=== PATIENT | female | born 1985 | race Caucasian/White ===

== ENCOUNTER 2016-08-07 09:43 | Emergency (ER) | payer BC ==
[2016-08-07 09:54] VITALS: BP 124/81
--- NOTE | 2016-08-07 10:37 | EDM.PDOC ---
ED HPI GENERAL MEDICAL PROBLEM - General Chief Complaint: Cardiovascular Problem Stated Complaint: SENT BY CLINIC RAPID HEART RATE/FACIAL SWELLING Time Seen by Provider: 08/07/16 10:30 Source of Information: Reports: Patient, Family (mother) History Limitations: Reports: No Limitations - History of Present Illness INITIAL COMMENTS - FREE TEXT/NARRATIVE: 30-year-old female since the ED due to feeling of palpitations lightheadedness and dizziness with standing. Generalized weakness. She reports that she's been having 4-5 loose large-volume watery stools for the last 6 days. No associated fever. Intermittent abdominal cramping pain with no blood noted in the diarrheal stool. Irritable bowel syndrome or Crohn's disease or colitis. She's had more or less loose stools since having her gallbladder removed several years ago. She states she is on a liquid diet only. Eats solids. She eats at home. There is little chance of foodborne illness. One of her children were sick with vomiting for one half day but no diarrhea developed. She has no associated nausea or vomiting.. She has lost about 5 pounds of weight in the last 6 days. Onset: Sudden Onset Date: 08/01/16 Duration: Day(s):, Chronic, Constant Location: Reports: Abdomen (Persistent loose watery large volume of stool loss over the last 6 days.) Quality: Reports: Other Severity: Moderate (Intermittent abdominal cramping.) Improves with: Reports: None Worsens with: Reports: Other (Drinking any fluid seems to sign off.) Context: Denies: Activity, Exercise, Lifting, Sick Contact, Trauma, Other Associated Symptoms: Reports: Loss of Appetite, Malaise, Weakness, Other ( Lightheaded and dizzy.). 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.) - Related Data Allergies Allergy/AdvReac Type Severity Reaction Status Date / Time No Known Allergies Allergy Verified 08/07/16 09:50 Home Meds: Home Meds Dicyclomine [Bentyl] 20 mg PO Q6H PRN #12 tablet 08/07/16 [Rx] Past Medical History - Past Health History Medical/Surgical History: Denies Medical/Surgical History HEENT History: Reports: None Cardiovascular History: Reports: None Respiratory History: Reports: None Genitourinary History: Reports: None Other OB/BYN History: Grav 6 para3 Musculoskeletal History: Reports: None Neurological History: Reports: None Psychiatric History: Reports: Anxiety Endocrine/Metabolic History: Reports: None Hematologic History: Reports: None Immunologic History: Reports: None Oncologic (Cancer) History: Reports: None Dermatologic History: Reports: None - Past Surgical History Cardiovascular Surgical History: Reports: None GI Surgical History: Reports: Esophageal Dilatation Female Surgical History: Reports: Hysterectomy Other Female Surgeries/Procedures: LEEP procedure C-sec x 1 Social & Family History - Family History Family Medical History: Noncontributory - Tobacco Use Smoking Status *Q: Never Smoker Used Tobacco, but Quit: No Second Hand Smoke Exposure: No - Caffeine Use Caffeine Use: Reports: Coffee - Alcohol Use Days Per Week of Alcohol Use: 1 Number of Drinks Per Day: 1 Total Drinks Per Week: 1 - Recreational Drug Use Recreational Drug Use: No - Living Situation & Occupation Living situation: Reports: Occupation: Employed ED ROS GENERAL - Review of Systems Review Of Systems: See Below Constitutional: Reports: Malaise, Weakness, Fatigue, Decreased Appetite (Feel she's lost about 5 pounds in the last 6 days she lives on fluid diet only no solids.), Weight Loss. Denies: Fever, Chills HEENT: Reports: No Symptoms Respiratory: Reports: No Symptoms Cardiovascular: Reports: Lightheadedness (Isabel dizzy lightheaded like she might pass out.), Palpitations. Denies: Blood Pressure Problem (Palpitations this morning.) Endocrine: Reports: Fatigue GI/Abdominal: Reports: Abdominal Pain (She is to present illness), Diarrhea ( She history of present illness). Denies: Hematemesis, Hematochezia, Melena, Stool Incontinence, Vomiting, Other : Reports: No Symptoms Musculoskeletal: Reports: No Symptoms Skin: Reports: No Symptoms Neurological: Reports: No Symptoms Psychiatric: Reports: No Symptoms Hematologic/Lymphatic: Reports: No Symptoms Immunologic: Reports: No Symptoms ED EXAM, GENERAL - Physical Exam Exam: See Below Exam Limited By: No Limitations General Appearance: Alert, WD/WN, No Apparent Distress Eye Exam: Bilateral Eye: Normal Inspection (No jaundice.) Throat/Mouth: Normal Inspection, Normal Lips, Normal Teeth, Normal Oropharynx Head: Atraumatic, Normocephalic Neck: Normal Inspection, Supple, Non-Tender, Full Range of Motion. No: Lymphadenopathy (L), Lymphadenopathy (R) Respiratory/Chest: No Respiratory Distress, Lungs Clear, Normal Breath Sounds, No Accessory Muscle Use Cardiovascular: Normal Peripheral Pulses, Regular Rate, Rhythm, No Edema, No Gallop, No JVD, No Murmur GI/Abdominal: Normal Bowel Sounds, Soft, Non-Tender, No Organomegaly, No Distention, No Abnormal Bruit, No Mass, Pelvis Stable Back Exam: Normal Inspection, Full Range of Motion Extremities: Normal Inspection, Normal Range of Motion, Non-Tender, No Pedal Edema, Normal Capillary Refill Neurological: Alert, Oriented, CN II-XII Intact, Normal Cognition, Normal Gait, Normal Reflexes Psychiatric: Normal Affect, Normal Mood Skin Exam: Warm, Dry, Intact, Normal Color, No Rash EKG INTERPRETATION EKG Date: 08/07/16 Time: 09:50 Rhythm: NSR Rate (Beats/Min): 76 [place]: Normal P-Wave: Present QRS: Other (Initial poor R-wave progression otherwise normal ECG) ST-T: Normal QT: Prolonged Course - Vital Signs Last Recorded V/S: Last Vital Signs Temp 37.1 C 08/07/16 09:51 Pulse 77 08/07/16 09:51 Resp 16 08/07/16 09:51 BP 124/81 08/07/16 09:51 Pulse Ox 100 08/07/16 09:51 Orthostatic Blood Pressure [ 107/78 Standing] Orthostatic Blood Pressure [ 107/74 Sitting] Orthostatic Blood Pressure [ 102/67 Supine] - Orders/Labs/Meds Orders: Active Orders 24 hr Category Date Time Status EKG 12 Lead [EKG Documentation Completion] [RC] STAT Care 08/07/16 09:54 Active C DIFFICILE BY PCR W/NAP1 [MOLEC] Stat Lab 08/07/16 10:36 Ordered Labs: Laboratory Tests 08/07/16 08/07/16 08/07/16 Range/Units 10:00 10:00 10:00 WBC 8.07 (3.98-10.04) K/mm3 RBC 5.08 (3.98-5.22) M/mm3 Hgb 14.1 (11.2-15.7) gm/L Hct 43.4 (34.1-44.9) % MCV 85.4 (79.4-94.8) fl MCH 27.8 (25.6-32.2) pg MCHC 32.5 (32.2-35.5) g/dl RDW Std Deviation 39.3 (36.4-46.3) fL Plt Count 275 (182-369) K/mm3 MPV 11.2 (9.4-12.3) fl Neutrophils % (Manual) 45 (40-60) % Band Neutrophils % 0 (0-10) % Lymphocytes % (Manual) 50 H (20-40) % Atypical Lymphs % 0 % Monocytes % (Manual) 4 (2-10) % Eosinophils % (Manual) 1 (0.7-5.8) % Basophils % (Manual) 0 L (0.1-1.2) Platelet Estimate Adequate Plt Morphology Comment Normal RBC Morph Comment Normal Sodium 138 (136-145) mEq/L Potassium 3.7 (3.5-5.1) mEq/L Chloride 104 (98-107) mEq/L Carbon Dioxide 24 (21-32) mEq/L Anion Gap 13.7 (5-15) BUN 7 (7-18) mg/dL Creatinine 0.8 (0.55-1.02) mg/dL Est Cr Clr Drug Dosing 92.53 mL/min Estimated GFR (MDRD) > 60 (>60) mL/min BUN/Creatinine Ratio 8.8 L (14-18) Glucose 91 (74-106) mg/dL Calcium 8.7 (8.5-10.1) mg/dL Total Bilirubin 0.7 (0.2-1.0) mg/dL AST 15 (15-37) U/L ALT 20 (14-59) U/L Alkaline Phosphatase 43 L (46-116) U/L C-Reactive Protein < 0.2 (<1.0) mg/dL Total Protein 7.9 (6.4-8.2) g/dl Albumin 4.1 (3.4-5.0) g/dl Globulin 3.8 gm/dL Albumin/Globulin Ratio 1.1 (1-2) Lipase 145 (73-393) U/L Meds: Medications Discontinued Medications Generic Name Dose Route Start Last Admin Trade Name Freq PRN Reason Stop Dose Admin Dextrose/Sodium Chloride 1,000 mls @ 999 mls/hr 08/07/16 10:45 08/07/16 10:45 Dextrose 5%-Normal Saline IV 999 mls/hr ASDIRECTED MICHELLE Administration - Radiology Interpretation Free Text/Narrative:: 30-year-old female presents to the ED with palpitations lightheadedness dizziness. She reports 6 days of large volume stool loss on average 5-6 stools per day. No blood. She states she does not eat solids she takes only liquids and lives on protein shakes for the most part no recent change in the protein shakes to increase lactulose in them. Same thing she's been using for 3 years. She does not eat out and it's highly unlikely that she has a food borne illness or toxin. No recent antibiotic usage. She has orthostatic according to nurses. ECG done by triage nurse shows sinus at 76/m with initial poor R-wave progression but otherwise normal ECG. Examination reveals her to be probably mildly to moderately volume depleted. Labs to be done. She will be given D5 normal saline at open. Dual if one becomes available be collected for culture and WBCs. - Re-Assessments/Exams Free Text/Narrative Re-Assessment/Exam: 08/07/16 11:23 labs reveal a normal white count of 8.07 with 45% neutrophils and 50% lymphocytes suggesting viral etiology .Hemoglobin is 14.1 . Hematocrit is 43.4. Platelets are 275,000. Chemistry shows a sodium of 138 potassium 3.7. And a gap is fairly normal 13.7 lipase 145 CRP less than 0.2. Therefore she has no major metabolic abnormalities identified. Will require just a liter of IV fluids and I'll give her some Bentyl to be used when necessary every 6 hours to help with abdominal cramping pain and ease the diarrhea. She has not passed any stools here. Will send her home to collect one at home and return it to the lab for analysis. Suggest changing protein drinks to non lactose for a while. Departure - Departure Time of Disposition: 11:52 Disposition: Home, Self-Care 01 Condition: Fair Clinical Impression: Diarrhea Qualifiers: Diarrhea type: unspecified type Qualified Code(s): R19.7 - Diarrhea, unspecified Prescriptions: Dicyclomine [Bentyl] 20 mg PO Q6H PRN #12 tablet PRN Reason: abdominal cramps/diarrhea Instructions: Diarrhea, Adult Referrals: Edi,Randi M, ASE CERTIFIED TECHNICIAN [Primary Care Provider] - Forms: ED Department Discharge Additional Instructions: Evaluation in the emergency department today in regards to persistent diarrhea for the last 6 days. This resulted in mild to moderate volume depletion. This was replenished with intravenous fluids while here in the department. Lab work turned out to be completely normal with normal white count and no signs of any significant infection. It is most likely viral in etiology since you do not have much exposure to other foods to cause food borne illness. Suggest trying protein shakes that do not contain lactose as the dairy product continues to aggravate diarrhea. Suggest use of Bentyl 20 mg tablet every 6 hours as needed for relief of abdominal cramping pain and/or diarrhea. Social habit diarrhea stool you take Bentyl and hopefully won't have any further diarrhea for 16 hours. Continue Gatorade or Powerade or disease or excellent replenishing fluids almost identical to IV fluids. Suggest collecting a stool sample at home and bringing it back to the lab in the hospital for analysis. Usually it available 24-36 hours after his brought back to the hospital. This is looking for any bacterial source of diarrhea and for white blood cells which would suggest an infectious cause. You'll hear back from us if the stool culture grows out something. If it does not grow anything and measles viral illness should be getting better now next 3 days. If not you should be seen again.should be seen again. - My Orders Last 24 Hours: My Active Orders 08/07/16 09:54 EKG 12 Lead [EKG Documentation Completion] [RC] STAT 08/07/16 10:36 C DIFFICILE BY PCR W/NAP1 [MOLEC] Stat - Assessment/Plan Last 24 Hours: My Active Orders 08/07/16 09:54 EKG 12 Lead [EKG Documentation Completion] [RC] STAT 08/07/16 10:36 C DIFFICILE BY PCR W/NAP1 [MOLEC] Stat
[2016-08-07] MEDS ORDERED: Dextrose 5%-0.9% NaCl 1,000 ML IV SCH (10:45)
== END 2016-08-07 12:23 | disposition home or self-care (01) ==
LOC: JD.ED 09:43 → SUPCPDRO 09:43 → JD.ED 12:23
DX: R19.7 Diarrhea, unspecified (principal); Z90.710 Acquired absence of both cervix and uterus
CPT/HCPCS: 36415; 80053; 83690; 85025; 86140; 93005; 96360; 99285; J7042; 99283

== ENCOUNTER 2017-01-09 16:54 | Emergency (ER) | payer BC, MEDICAID, SELFPAY ==
[2017-01-09 17:14] VITALS: BP 110/86
[2017-01-09] MEDS ORDERED: LORazepam 1 MG Tab PO ONE (17:35)
[2017-01-09] MEDS ORDERED: Alum Hydrox/Mag Hydrox/Simeth 30 ML, Lidocaine 2% 15 ML PO ONE ×2 (17:35)
--- NOTE | 2017-01-09 17:50 | EDM.PDOC ---
ED HPI GENERAL MEDICAL PROBLEM - General Chief Complaint: Chest Pain Stated Complaint: SWELLING OVER ENTIRE BODY Time Seen by Provider: 01/09/17 17:14 Source of Information: Reports: Patient History Limitations: Reports: No Limitations - History of Present Illness INITIAL COMMENTS - FREE TEXT/NARRATIVE: Patient is a 31-year-old female who presents to the ED complaining of increasing anxiety, intermittent chest pain, pain to her upper back, and also generalized swelling all over her body. States December 20 underwent breast lift with biopsy and also liposuction around the breast. Had minimal pain since surgery. States onset of discomfort started approximately 4 days ago and has persisted. Has had some palpitations in the past and was on a beta carlie for one month. Denies any palpitations recently. In addition has a history of difficulty swallowing solid foods and has had a EGD with no significant findings. Currently has pain to her back described as a tightness that is intermittent with anxiety. She did Xanax 0.5 mg twice with minimal relief. She believes this is related to anxiety but is concerned about possible other causes. In addition she's also had a few episodes of diarrhea every day for the past 4 days. Denies any recent ingestion of bad or questional food. She is not nauseated and denies any blood present. She does not eat solid foods frequently. Drinks a lot of shakes and notes no changes to her diet as of recent. She has no history of DVT/PE. She does not take control. she does not smoke. There's been no known precipitating factors other than surgery. She is not since she's had a hysterectomy. She denies any fever, shortness of breath, painful urination, numbness/tingling to extremities, dizziness, Pre/syncopal episodes, or any additional complaint. Chest Pain Score (Numeric/FACES): 9 - Related Data Allergies Allergy/AdvReac Type Severity Reaction Status Date / Time No Known Allergies Allergy Verified 08/07/16 09:50 Home Meds: Home Meds ALPRAZolam [Xanax] 0.5 mg PO BID PRN 01/09/17 [History] Past Medical History - Past Health History Medical/Surgical History: Denies Medical/Surgical History HEENT History: Reports: None Cardiovascular History: Reports: None Respiratory History: Reports: None Genitourinary History: Reports: None Other OB/BYN History: Grav 6 para3 Musculoskeletal History: Reports: None Neurological History: Reports: None Psychiatric History: Reports: Anxiety Endocrine/Metabolic History: Reports: None Hematologic History: Reports: None Immunologic History: Reports: None Oncologic (Cancer) History: Reports: None Dermatologic History: Reports: None - Past Surgical History Cardiovascular Surgical History: Reports: None GI Surgical History: Reports: Cholecystectomy, Esophageal Dilatation Female Surgical History: Reports: Hysterectomy Other Female Surgeries/Procedures: LEEP procedure C-sec x 1 Social & Family History - Family History Family Medical History: Noncontributory - Tobacco Use Smoking Status *Q: Never Smoker Used Tobacco, but Quit: No Second Hand Smoke Exposure: No - Caffeine Use Caffeine Use: Reports: Coffee - Alcohol Use Days Per Week of Alcohol Use: 1 Number of Drinks Per Day: 1 Total Drinks Per Week: 1 - Recreational Drug Use Recreational Drug Use: No - Living Situation & Occupation Living situation: Reports: Occupation: Employed ED ROS GENERAL - Review of Systems Review Of Systems: See Below Constitutional: Reports: No Symptoms HEENT: Reports: No Symptoms Respiratory: Denies: Shortness of Breath, Pleuritic Chest Pain, Cough, Sputum Cardiovascular: Reports: Palpitations. Denies: Chest Pain, Dyspnea on Exertion , Lightheadedness (Occasionally), Syncope GI/Abdominal: Reports: Abdominal Pain (Epigastric), Diarrhea (Intermittent over the past 4 days with no blood present), Decreased Appetite (Normal). Denies: Constipation, Nausea, Vomiting ED EXAM, UPPER BACK/NECK PAIN - Physical Exam Exam: See Below Exam Limited By: No Limitations General Appearance: Alert, WD/WN, No Apparent Distress Ears Exam: Hearing Grossly Normal Nose Exam: Normal Inspection Throat/Mouth Exam: Normal Inspection, Normal Oropharynx, Normal Voice, No Airway Compromise Head Exam: Atraumatic, Normocephalic Neck Exam: Non-Tender, Full Range of Motion, Normal Alignment, Normal Inspection Nexus Criteria: Posterior, Midline Cervical Tenderness Cardiovascular/Respiratory: Regular Rate, Rhythm, No M/R/G, Normal Peripheral Pulses GI/Abdominal: Normal Bowel Sounds, Soft, Non-Tender, No Organomegaly, No Distention Back Exam: Normal Inspection Extremities: Normal Inspection, Normal Range of Motion, Non-Tender, No Pedal Edema, Normal Capillary Refill Neurologic: manager basketball II-XII nml As Tested, No Motor/Sensory Deficits, Alert, Normal Mood/Affect, Oriented x 3 Psychiatric: Normal Affect, Normal Mood Skin Exam: Normal Color, Warm/Dry Course - Vital Signs Last Recorded V/S: Last Vital Signs Temp 98.7 F 01/09/17 17:10 Pulse 59 L 01/09/17 17:10 Resp 16 01/09/17 17:10 BP 110/86 01/09/17 17:10 Pulse Ox 100 01/09/17 17:10 - Orders/Labs/Meds Orders: Active Orders 24 hr Category Date Time Status EKG Documentation Completion [RC] STAT Care 01/09/17 17:32 Active Chest 1V Frontal [CR] Stat Exams 01/09/17 17:32 Taken Labs: Laboratory Tests 01/09/17 01/09/17 01/09/17 Range/Units 18:00 18:00 18:08 WBC 8.22 (3.98-10.04) K/mm3 RBC 4.77 (3.98-5.22) M/mm3 Hgb 13.5 (11.2-15.7) gm/L Hct 40.0 (34.1-44.9) % MCV 83.9 (79.4-94.8) fl MCH 28.3 (25.6-32.2) pg MCHC 33.8 (32.2-35.5) g/dl RDW Std Deviation 38.0 (36.4-46.3) fL Plt Count 309 (182-369) K/mm3 MPV 10.4 (9.4-12.3) fl Neut % (Auto) 58.2 (34.0-71.1) % Lymph % (Auto) 32.5 (19.3-51.7) % [place] % (Auto) 7.7 (4.7-12.5) % Eos % (Auto) 1.0 (0.7-5.8) Baso % (Auto) 0.5 (0.1-1.2) % Neut # (Auto) 4.79 (1.56-6.13) K/mm3 Lymph # (Auto) 2.67 (1.18-3.74) K/mm3 [place] # (Auto) 0.63 H (0.24-0.36) K/mm3 Eos # (Auto) 0.08 (0.04-0.36) K/mm3 Baso # (Auto) 0.04 (0.01-0.08) K/mm3 D-Dimer, Quantitative (0.19-0.59) mg/L Sodium (136-145) mEq/L Potassium (3.5-5.1) mEq/L Chloride (98-107) mEq/L Carbon Dioxide (21-32) mEq/L Anion Gap (5-15) BUN (7-18) mg/dL Creatinine (0.55-1.02) mg/dL Est Cr Clr Drug Dosing mL/min Estimated GFR (MDRD) (>60) mL/min BUN/Creatinine Ratio (14-18) Glucose (74-106) mg/dL Calcium (8.5-10.1) mg/dL Total Bilirubin (0.2-1.0) mg/dL AST (15-37) U/L ALT (14-59) U/L Alkaline Phosphatase (46-116) U/L C-Reactive Protein (<1.0) mg/dL Total Protein (6.4-8.2) g/dl Albumin (3.4-5.0) g/dl Globulin gm/dL Albumin/Globulin Ratio (1-2) Lipase (73-393) U/L TSH 3rd Generation (0.358-3.74) uIU/mL Urine Color Yellow (Yellow) Urine Appearance Clear (Clear) Urine pH 6.0 (5.0-8.0) Ur Specific Jackson 1.025 (1.005-1.030) Urine Protein Negative (Negative) Urine Glucose (UA) Negative (Negative) Urine Ketones Negative (Negative) Urine Occult Blood Negative (Negative) Urine Nitrite Negative (Negative) Urine Bilirubin Negative (Negative) Urine Urobilinogen 0.2 (0.2-1.0) Ur Leukocyte Esterase Negative (Negative) Urine RBC 0-5 (0-5) /hpf Urine WBC 0-5 (0-5) /hpf Ur Epithelial Cells 0-5 (0-5) /hpf Urine Bacteria Few (FEW) /hpf Urine Mucus Many H (FEW) /hpf Urine Opiates Screen Negative (NEGATIVE) Ur Buprenorphine Scrn Negative (NEGATIVE) Ur Oxycodone Screen Negative (NEGATIVE) Urine Methadone Screen Negative (NEGATIVE) Ur Propoxyphene Screen Negative (NEGATIVE) Ur Barbiturates Screen Negative (NEGATIVE) Ur Tricyclics Screen Negative (NEGATIVE) Ur Phencyclidine Scrn Negative (NEGATIVE) Ur Amphetamine Screen Negative (NEGATIVE) U Methamphetamines Scrn Negative (NEGATIVE) U Benzodiazepines Scrn Presumptive positive H (NEGATIVE) U Cocaine Metab Screen Negative (NEGATIVE) U Marijuana (THC) Screen Negative (NEGATIVE) 01/09/17 01/09/17 Range/Units 18:08 18:08 WBC (3.98-10.04) K/mm3 RBC (3.98-5.22) M/mm3 Hgb (11.2-15.7) gm/L Hct (34.1-44.9) % MCV (79.4-94.8) fl MCH (25.6-32.2) pg MCHC (32.2-35.5) g/dl RDW Std Deviation (36.4-46.3) fL Plt Count (182-369) K/mm3 MPV (9.4-12.3) fl Neut % (Auto) (34.0-71.1) % Lymph % (Auto) (19.3-51.7) % [place] % (Auto) (4.7-12.5) % Eos % (Auto) (0.7-5.8) Baso % (Auto) (0.1-1.2) % Neut # (Auto) (1.56-6.13) K/mm3 Lymph # (Auto) (1.18-3.74) K/mm3 [place] # (Auto) (0.24-0.36) K/mm3 Eos # (Auto) (0.04-0.36) K/mm3 Baso # (Auto) (0.01-0.08) K/mm3 D-Dimer, Quantitative 0.35 (0.19-0.59) mg/L Sodium 140 (136-145) mEq/L Potassium 3.7 (3.5-5.1) mEq/L Chloride 105 (98-107) mEq/L Carbon Dioxide 25 (21-32) mEq/L Anion Gap 13.7 (5-15) BUN 11 (7-18) mg/dL Creatinine 0.8 (0.55-1.02) mg/dL Est Cr Clr Drug Dosing 87.99 mL/min Estimated GFR (MDRD) > 60 (>60) mL/min BUN/Creatinine Ratio 13.8 L (14-18) Glucose 86 (74-106) mg/dL Calcium 9.2 (8.5-10.1) mg/dL Total Bilirubin 0.8 (0.2-1.0) mg/dL AST 12 L (15-37) U/L ALT 14 (14-59) U/L Alkaline Phosphatase 39 L (46-116) U/L C-Reactive Protein < 0.2 (<1.0) mg/dL Total Protein 7.5 (6.4-8.2) g/dl Albumin 4.1 (3.4-5.0) g/dl Globulin 3.4 gm/dL Albumin/Globulin Ratio 1.2 (1-2) Lipase 126 (73-393) U/L TSH 3rd Generation 0.280 L (0.358-3.74) uIU/mL Urine Color (Yellow) Urine Appearance (Clear) Urine pH (5.0-8.0) Ur Specific Jackson (1.005-1.030) Urine Protein (Negative) Urine Glucose (UA) (Negative) Urine Ketones (Negative) Urine Occult Blood (Negative) Urine Nitrite (Negative) Urine Bilirubin (Negative) Urine Urobilinogen (0.2-1.0) Ur Leukocyte Esterase (Negative) Urine RBC (0-5) /hpf Urine WBC (0-5) /hpf Ur Epithelial Cells (0-5) /hpf Urine Bacteria (FEW) /hpf Urine Mucus (FEW) /hpf Urine Opiates Screen (NEGATIVE) Ur Buprenorphine Scrn (NEGATIVE) Ur Oxycodone Screen (NEGATIVE) Urine Methadone Screen (NEGATIVE) Ur Propoxyphene Screen (NEGATIVE) Ur Barbiturates Screen (NEGATIVE) Ur Tricyclics Screen (NEGATIVE) Ur Phencyclidine Scrn (NEGATIVE) Ur Amphetamine Screen (NEGATIVE) U Methamphetamines Scrn (NEGATIVE) U Benzodiazepines Scrn (NEGATIVE) U Cocaine Metab Screen (NEGATIVE) U Marijuana (THC) Screen (NEGATIVE) Meds: Medications Discontinued Medications Generic Name Dose Route Start Last Admin Trade Name Freq PRN Reason Stop Dose Admin Al Hydroxide/Mg Hydroxide 30 0 ml 01/09/17 17:35 01/09/17 18:01 ml/ Lidocaine HCl 15 ml PO 01/09/17 17:36 45 ml ONETIME ONE Administration Lorazepam 1 mg 01/09/17 17:35 01/09/17 18:01 Ativan PO 01/09/17 17:36 1 mg ONETIME ONE Administration - Re-Assessments/Exams Free Text/Narrative Re-Assessment/Exam: No IV will be established at this time. Will start with the GI cocktail and Ativan 1 mg by mouth. Initial labs and studies include CBC, chem 14, urine drug tox, lipase, TSH, UA with mitral, and CRP. Chest x-ray and EKG will be obtained. Well's criteria 1.5 points low risk group: 1.3% chance of PE in ED population. She is a nonsmoker, not on control, no history of cancer, no findings concerning for DVT. She has a history of a breast augmentation approximately 4 weeks ago. Per patient no bruising present. Patient did not pass PERC rule with history of surgery <4wks ago. Again she is not tachycardic, symptomatic, or hypoxic at this time. Will hold off on obtaining d-dimer. D-dimer was canceled but lab already ran it. 0.35. Within normal limits. EKG sinus rhythm at a rate of [address] changes noted. Chest x-ray revealed: Normal chest x-ray with no acute findings. Final interpretation is pending. Labs reviewed: CBC, chem 14, and UA were essentially normal. CRP within normal limits. TSH low at 0.280. Lipase 126. Toxicology positive for benzodiazepines. 01/09/17 20:15 Reassessment, patient's symptoms completely resolved with the above medications above. Will discharge patient home with instructions as documented. Departure - Departure Time of Disposition: 20:25 Disposition: Home, Self-Care 01 Condition: Good Clinical Impression: Anxiety - Discharge Information Referrals: Randi Daley NP [Primary Care Provider] - Forms: ED Department Discharge Additional Instructions: As discussed all symptoms were relieved with the Ativan 1 mg by mouth. Suggesting symptoms are related to anxiety. Please follow up with your primary care provider in the next week for reevaluation and further discussion for anxiety treatment. Refrain from any caffeinated beverages. In addition your TSH was low suggesting he may have hyperthyroidism which can contribute to increased anxiety and palpitations. Please follow up with PCP for further testing. Return to ED as needed for any new or worsening symptoms. - My Orders Last 24 Hours: My Active Orders 01/09/17 17:32 EKG Documentation Completion [RC] STAT Chest 1V Frontal [CR] Stat - Assessment/Plan Last 24 Hours: My Active Orders 01/09/17 17:32 EKG Documentation Completion [RC] STAT Chest 1V Emi [CR] Stat
--- NOTE | 2017-01-10 08:51 | CR ---
Chest: Portable view of the chest was obtained. Comparison: Prior chest x-ray of 09/18/15 is available. Heart size and mediastinum are normal. Lungs are clear. Bony structures are grossly intact. Surgical clips are incidentally noted from prior cholecystectomy. Impression: 1. Nothing acute is identified on portable chest x-ray. Diagnostic code #1
== END 2017-01-09 20:40 | disposition home or self-care (01) ==
LOC: JD.ED 16:54
DX: F41.9 Anxiety disorder, unspecified (principal)
CPT/HCPCS: 36415; 71010; 80053; 80306; 81001; 83690; 84443; 85025; 85379; 86140; 93005; 99285; A9270; 99284

== ENCOUNTER 2018-03-02 16:08 | Emergency (ER) | payer BC, OTHER ==
[2018-03-02 16:18] VITALS: BP 111/69
[2018-03-02] MEDS ORDERED: HYDROmorphone 1 MG/ML Syringe IVPUSH ONE (16:40)
[2018-03-02] MEDS ORDERED: Sodium Chloride 0.9% 500 ML IV ONE (16:40)
[2018-03-02] MEDS ORDERED: Ondansetron 4 MG/2 ML SDV IVPUSH ONE (16:40)
[2018-03-02] MEDS ORDERED: Sodium Chloride 0.9% 10 ML Syringe FLUSH PRN (16:40)
[2018-03-02] MEDS ORDERED: LORazepam 2 MG/ML SDV IVPUSH ONE ×2 (16:40→18:59)
[2018-03-02] MEDS ORDERED: Alum Hydrox/Mag Hydrox/Simeth 30 ML, Lidocaine 2% 15 ML PO ONE ×2 (18:32)
[2018-03-02] MEDS: HYDROmorphone 1 MG/ML Syringe IVPUSH ONE ×2 (18:41→19:11)
[2018-03-02] MEDS ORDERED: methylPREDNISolone Sodium Succinate 125 MG/2 ML SDV IVPUSH ONE (19:13)
[2018-03-02] MEDS ORDERED: Ketorolac 30 MG/ML SDV IVPUSH SCH (19:15)
[2018-03-02] MEDS ORDERED: Ketorolac 30 MG/ML SDV IVPUSH ONE (19:34)
--- NOTE | 2018-03-02 19:39 | EDM.PDOC ---
ED HPI GENERAL MEDICAL PROBLEM - General Chief Complaint: Chest Pain Stated Complaint: LINX DEVICE DIALATED NOW HAVING CHEST PAIN Time Seen by Provider: 03/02/18 16:16 Source of Information: Reports: Patient, RN Notes Reviewed - History of Present Illness INITIAL COMMENTS - FREE TEXT/NARRATIVE: 32-year-old female comes in with severe anterior chest discomfort. She does have history of severe GE reflux, Self's esophagus and did have what is called a "lynx device" at her GE junction to help control acid reflux. She's been having a lot of pain this past week. She did see her primary physician Dr. Travis this past Sunday 4 days ago. He did do endoscopy at that time, possible dilatation. She's continued to have discomfort since that time but has been getting by eating, drinking small amounts at a time only. See evening after drinking some and sure she developed severe pain and spasm of her anterior mid chest that has not been going away. She is nauseated. The discomfort is similar to what she has had on previous occasions but much more severe than usual. She is currently taking omeprazole on a regular basis, Zantac. She also was started on prednisone this past week but she stopped it yesterday because it was making her feel "shaky". She's had no fever or chills. She is not short of breath. Chest Pain Score (Numeric/FACES): 9 - Related Data Allergies Allergy/AdvReac Type Severity Reaction Status Date / Time No Known Allergies Allergy Verified 03/02/18 16:17 Home Meds: Home Meds LORazepam [Ativan] 1 mg PO BID PRN #10 tab 03/02/18 [Rx] Ondansetron [Zofran ODT] 4 mg PO Q8HR PRN #14 tab.dis 03/02/18 [Rx] Ranitidine [Zantac] 150 mg PO DAILY 03/02/18 [History] Past Medical History - Past Health History Medical/Surgical History: Denies Medical/Surgical History HEENT History: Reports: None Cardiovascular History: Reports: None Respiratory History: Reports: None Genitourinary History: Reports: None Other [employer] History: Grav 6 para3 Musculoskeletal History: Reports: None Neurological History: Reports: None Psychiatric History: Reports: Anxiety Endocrine/Metabolic History: Reports: None Hematologic History: Reports: None Immunologic History: Reports: None Oncologic (Cancer) History: Reports: None Dermatologic History: Reports: None - Past Surgical History Cardiovascular Surgical History: Reports: None GI Surgical History: Reports: Cholecystectomy, Esophageal Dilatation, Other ( See Below) Other GI Surgeries/Procedures: lynx procedure Female Surgical History: Reports: Hysterectomy Other Female Surgeries/Procedures: LEEP procedure C-sec x 1 Social & Family History - Family History Family Medical History: Noncontributory - Tobacco Use Smoking Status *Q: Never Smoker Second Hand Smoke Exposure: No - Caffeine Use Caffeine Use: Reports: Coffee - Recreational Drug Use Recreational Drug Use: No - Living Situation & Occupation Living situation: Reports: Occupation: Employed ED ROS GENERAL - Review of Systems Review Of Systems: See Below Constitutional: Denies: Fever, Chills, Diaphoresis HEENT: Denies: Throat Pain Respiratory: Denies: Shortness of Breath Cardiovascular: Reports: Chest Pain GI/Abdominal: Reports: Nausea. Denies: Abdominal Pain, Diarrhea, Vomiting Musculoskeletal: Denies: Back Pain Skin: Reports: No Symptoms Neurological: Reports: Dizziness Psychiatric: Reports: Anxiety ED EXAM, GENERAL - Physical Exam Exam: See Below General Appearance: Alert, Anxious, Severe Distress Eye Exam: Bilateral Eye: PERRL Throat/Mouth: Normal Inspection Head: Atraumatic. No: Facial Swelling Neck: Supple, Full Range of Motion, Other (no JVD, swelling or adenopathy) Respiratory/Chest: No Respiratory Distress, Lungs Clear Cardiovascular: Regular Rate, Rhythm GI/Abdominal: Soft, Non-Tender Extremities: Normal Inspection, Normal Range of Motion. No: Pedal Edema Neurological: Alert, Oriented, No Motor/Sensory Deficits Skin Exam: Warm, Dry, Normal Color EKG INTERPRETATION EKG Date: 03/02/18 Rhythm: NSR Cisco: Normal P-Wave: Present QRS: Normal ST-T: Normal Course - Vital Signs Last Recorded V/S: Last Vital Signs Temp 98.2 F 03/02/18 16:12 Pulse 72 03/02/18 16:12 Resp 18 03/02/18 16:12 BP 111/69 03/02/18 16:12 Pulse Ox 98 03/02/18 16:12 - Orders/Labs/Meds Orders: Active Orders 24 hr Category Date Time Status EKG 12 Lead [EKG Documentation Completion] [RC] STAT Care 03/02/18 16:39 Active Peripheral IV Care [RC] . DIRECTED Care 03/02/18 16:40 Active Chest 1V Frontal [CR] Stat Exams 03/02/18 17:01 Taken Peripheral IV Insertion Adult [OM.PC] Stat Oth 03/02/18 16:40 Ordered Meds: Medications Discontinued Medications Generic Name Dose Route Start Last Admin Trade Name Freq PRN Reason Stop Dose Admin Al Hydroxide/Mg Hydroxide 30 0 ml 03/02/18 18:32 03/02/18 18:40 ml/ Lidocaine HCl 15 ml PO 03/02/18 18:33 45 ml ONETIME ONE Administration Hydromorphone HCl 1 mg 03/02/18 16:40 03/02/18 17:00 Dilaudid IVPUSH 03/02/18 16:41 1 mg ONETIME ONE Administration Hydromorphone HCl 1 mg 03/02/18 18:32 03/02/18 19:11 Dilaudid IVPUSH 03/02/18 18:33 0.5 mg ONETIME ONE Administration Sodium Chloride 500 mls @ 999 mls/hr 03/02/18 16:40 03/02/18 17:02 Normal Saline IV 03/02/18 17:10 999 mls/hr .BOLUS ONE Administration Ketorolac Tromethamine 30 mg 03/02/18 19:15 Toradol IVPUSH ONETIME MICHELLE Ketorolac Tromethamine 30 mg 03/02/18 19:34 03/02/18 19:38 Toradol IVPUSH 03/02/18 19:35 30 mg ONETIME ONE Administration Lorazepam 1 mg 03/02/18 16:40 03/02/18 17:01 Ativan IVPUSH 03/02/18 16:41 1 mg ONETIME ONE Administration Lorazepam 0.5 mg 03/02/18 18:59 03/02/18 19:11 Ativan IVPUSH 03/02/18 19:00 0.5 mg ONETIME ONE Administration Methylprednisolone Sodium Succinate 125 mg 03/02/18 19:13 03/02/18 19:26 Solu-Medrol IVPUSH 03/02/18 19:14 125 mg ONETIME ONE Administration Ondansetron HCl 4 mg 03/02/18 16:40 03/02/18 17:01 Zofran IVPUSH 03/02/18 16:41 4 mg ONETIME ONE Administration Sodium Chloride 10 ml 03/02/18 16:40 03/02/18 17:01 Saline Flush FLUSH 10 ml ASDIRECTED PRN Administration Keep Vein Open - Re-Assessments/Exams Free Text/Narrative Re-Assessment/Exam: 03/02/18 19:48 EKG is normal, chest x-ray is normal. We have given Dialudid 2 mg IV, ativan 1.5 mg IV total over the past 3 hrs. Finally starting to get some relief. I have called down to [facility] to see if Dr Travis is available. He is not functional manager. I have discussed sx with Dr Macias, Surgeon functional manager. He does suggest IV torodol and also IV solumedrol. Have also given GI coctail, initially pain was worse, now better. She is swallowing saliva, she has had no vomiting while here in the ED. Will try help get her through the weekend. She can call or perhaps see Dr Travis Sunday which is 1 1/2 days from now. Departure - Departure Time of Disposition: 20:00 Disposition: Home, Self-Care 01 Condition: Fair Clinical Impression: GERD with esophagitis Prescriptions: Ondansetron [Zofran ODT] 4 mg PO Q8HR PRN #14 tab.dis PRN Reason: Nausea/Vomiting LORazepam [Ativan] 1 mg PO BID PRN #10 tab PRN Reason: Muscle Spasm Referrals: PCP,None [Primary Care Provider] - Forms: ED Department Discharge Additional Instructions: Continue omeprazole, Zantac as previously prescribed. Clear liquids and very careful bland diet as tolerated. Ativan 1 mg twice a day if needed for esophageal, muscle and nerve relaxation. Zantac 4 mg ODT Q8 hours when necessary nausea vomiting. Try keep head and chest elevated as much as possible. Try continue prednisone as prescribed. The ativan should reduce or eliminate the side effects you were experiencing. Liquid Tylenol for mild to moderate discomfort or hydrocodone only if needed for severe pain not relieved by Ativan and liquid Tylenol. Plan to call Dr. Diaz Sunday. Return to ED as needed. - My Orders Last 24 Hours: My Active Orders 03/02/18 16:39 EKG 12 Lead [EKG Documentation Completion] [RC] STAT 03/02/18 16:40 Peripheral IV Care [RC] . DIRECTED Peripheral IV Insertion Adult [OM.PC] Stat 03/02/18 17:01 Chest 1V Frontal [CR] Stat - Assessment/Plan Last 24 Hours: My Active Orders 03/02/18 16:39 EKG 12 Lead [EKG Documentation Completion] [RC] STAT 03/02/18 16:40 Peripheral IV Care [RC] . DIRECTED Peripheral IV Insertion Adult [OM.PC] Stat 03/02/18 17:01 Chest 1V Frontal [CR] Stat
--- NOTE | 2018-03-03 17:00 | CR ---
Chest: Portable view of the chest was obtained. Comparison: Prior chest x-ray of 09/23/17. Heart size and mediastinum are normal. Lungs are clear. Bony structures are grossly intact. Incidental surgical clips seen from prior cholecystectomy. Impression: 1. Nothing acute is appreciated on portable chest x-ray. Diagnostic code #2
== END 2018-03-02 20:11 | disposition home or self-care (01) ==
LOC: JD.ED 16:08
DX: K21.0 Gastro-esophageal reflux disease with esophagitis (principal); Z79.899 Other long term (current) drug therapy
CPT/HCPCS: 71045; 93005; 96361; 96374; 96375; 96376; 99285; A9270; J1170; J1885; J2060; J2405; J2930; J7040; 93010; 99284

== ENCOUNTER 2018-03-17 19:33 | Emergency (ER) | payer BC ==
[2018-03-17 19:42] VITALS: BP 121/78
[2018-03-17] MEDS ORDERED: Famotidine 20 MG Tab PO ONE (19:53)
[2018-03-17] MEDS ORDERED: diphenhydrAMINE 50 MG Cap PO ONE (19:53)
[2018-03-17] MEDS ORDERED: predniSONE 20 MG Tab PO ONE (19:54)
[2018-03-17] MEDS ORDERED: Hydrocortisone 1% Crm 30 GM Tube TOP ONE (19:56)
--- NOTE | 2018-03-17 20:05 | EDM.PDOC ---
ED HPI GENERAL MEDICAL PROBLEM - General Chief Complaint: Skin Complaint Stated Complaint: recent surgery blisters around incisions Time Seen by Provider: 03/17/18 19:42 Source of Information: Reports: Patient History Limitations: Reports: No Limitations - History of Present Illness INITIAL COMMENTS - FREE TEXT/NARRATIVE: The patient presents with an allergic reaction. She had a lynx device for gastric reflux that was removed 4 days ago and she is having a rash and discomfort at the port sites. She had this done in [place] 4 days ago. This is where she had the device put in but it was not working that well for her. She had lots of pain with it. She says the areas all itch. She has 5 sites on her abdomen with steri strips. She has no known allergies. She did try some hydrocodone but that did not help. Onset: Gradual Duration: Day(s): (4) Location: Reports: Abdomen Quality: Reports: Other (Burning and itching) Severity: Moderate Improves with: Reports: None Worsens with: Reports: None Associated Symptoms: Reports: No Other Symptoms - Related Data Allergies Allergy/AdvReac Type Severity Reaction Status Date / Time No Known Allergies Allergy Verified 03/02/18 16:17 Home Meds: Home Meds Hydrocortisone [Hydrocortisone 1% Crm] 1 gm TOP ASDIRECTED #30 gm 03/17/18 [Rx] predniSONE [Prednisone] 40 mg PO DAILY #10 tablet 03/17/18 [Rx] Past Medical History - Past Health History Medical/Surgical History: Denies Medical/Surgical History HEENT History: Reports: None Cardiovascular History: Reports: None Respiratory History: Reports: None Genitourinary History: Reports: None Other [employer] History: Grav 6 para3 Musculoskeletal History: Reports: None Neurological History: Reports: None Psychiatric History: Reports: Anxiety Endocrine/Metabolic History: Reports: None Hematologic History: Reports: None Immunologic History: Reports: None Oncologic (Cancer) History: Reports: None Dermatologic History: Reports: None - Past Surgical History Cardiovascular Surgical History: Reports: None GI Surgical History: Reports: Cholecystectomy, Esophageal Dilatation, Other ( See Below) Other GI Surgeries/Procedures: lynx procedure Female Surgical History: Reports: Hysterectomy Other Female Surgeries/Procedures: LEEP procedure C-sec x 1 Social & Family History - Family History Family Medical History: Noncontributory - Tobacco Use Smoking Status *Q: Never Smoker - Caffeine Use Caffeine Use: Reports: Coffee - Recreational Drug Use Recreational Drug Use: No - Living Situation & Occupation Living situation: Reports: Occupation: Employed ED ROS GENERAL - Review of Systems Review Of Systems: See Below Constitutional: Reports: No Symptoms HEENT: Reports: No Symptoms Respiratory: Reports: No Symptoms Cardiovascular: Reports: No Symptoms Endocrine: Reports: No Symptoms GI/Abdominal: Reports: Other (5 incision sites with erythema and blisters) ED EXAM, SKIN/RASH Exam: See Below Exam Limited By: No Limitations General Appearance: Alert, No Apparent Distress Ears: Normal External Exam Nose: Normal Inspection Head: Atraumatic, Normocephalic Neck: Normal Inspection Respiratory/Chest: No Respiratory Distress GI/Abdominal: Other (5 port sites with erythema, edema and blisters. They all have steristrips on and when I take them off there is some fluid from the blisters but not from the wounds inside.) Course - Vital Signs Last Recorded V/S: Last Vital Signs Temp 97.8 F 03/17/18 19:39 Pulse 73 03/17/18 19:39 Resp 18 03/17/18 19:39 BP 121/78 03/17/18 19:39 Pulse Ox 100 03/17/18 19:39 - Orders/Labs/Meds Meds: Medications Discontinued Medications Generic Name Dose Route Start Last Admin Trade Name Jesus PRuYlissa Reason Stop Dose Admin Diphenhydramine HCl 50 mg 03/17/18 19:53 Benadryl PO 03/17/18 19:54 ONETIME ONE Famotidine 20 mg 03/17/18 19:53 Pepcid PO 03/17/18 19:54 ONETIME ONE Hydrocortisone 1 gm 03/17/18 19:56 Hydrocortisone 1% Crm TOP 03/17/18 19:57 ONETIME ONE Prednisone 40 mg 03/17/18 19:54 Prednisone PO 03/17/18 19:55 ONETIME ONE - Re-Assessments/Exams Free Text/Narrative Re-Assessment/Exam: 03/17/18 20:11 She is reacting to something. It may be the mastisol or the steristrips. I am not sure which one but I did remove the steristrips and my nurse cleaned the wounds and put hydrocortisone on. I also ordered prednisone, pepcid, and benadryl. I will give her a prescription for more hydrocortisone and prednisone. Departure - Departure Time of Disposition: 20:20 Disposition: Home, Self-Care 01 Condition: Good Clinical Impression: Allergic reaction Qualifiers: Encounter type: initial encounter Qualified Code(s): T78.40XA - Allergy, unspecified, initial encounter - Discharge Information *PRESCRIPTION DRUG MONITORING PROGRAM REVIEWED*: No *COPY OF PRESCRIPTION DRUG MONITORING REPORT IN PATIENT JOE: No Prescriptions: Hydrocortisone [Hydrocortisone 1% Crm] 1 gm TOP ASDIRECTED #30 gm predniSONE [Prednisone] 40 mg PO DAILY #10 tablet Referrals: PCP,Not In Area [Primary Care Provider] - Additional Instructions: Clean the affected areas 2 times per day with warm soapy water and apply the hydrocortisone cream after. Take the prednisone daily for 5 days. Take pepcid daily for 5 days. Take benadryl 50mg every 6 hours as needed for itching. Please return if you are worse.
== END 2018-03-17 20:22 | disposition home or self-care (01) ==
LOC: JD.ED 19:33
DX: T78.40XA Allergy, unspecified, initial encounter (principal); Z90.49 Acquired absence of other specified parts of digestive tract; Z90.710 Acquired absence of both cervix and uterus
CPT/HCPCS: 99282; A9270

== ENCOUNTER 2024-07-21 23:46 | Emergency (ER) | payer BC, MEDICAID ==
[2024-07-22] MEDS ORDERED: Sodium Chloride 0.9% 10 ML Syringe FLUSH PRN (00:46)
[2024-07-22 01:14] LABS: APPEARANCE,URINE CLEAR (Clear); BILIRUBIN,URINE NEGATIVE (Negative); COLOR,URINE YELLOW (Yellow); GLUCOSE,URINE NEGATIVE (Negative); KETONES,URINE NEGATIVE (Negative); LEUKOCYTE ESTERASE,URINE NEGATIVE (Negative); NITRITE,URINE NEGATIVE (Negative); OCCULT BLOOD,URINE NEGATIVE (Negative); PROTEIN,URINE NEGATIVE (Negative); UROBILINOGEN,URINE 0.2 (0.2-1.0)
[2024-07-22] MEDS: Alum Hydrox/Mag Hydrox/Simeth 30 ML, Lidocaine 2% 15 ML PO ONE (01:18)
[2024-07-22] MEDS: Famotidine 20 MG Tab PO ONE (01:18)
[2024-07-22 01:19] LABS: BASOPHILS ABSOLUTE AUTO 0.1 K/mm3 (0.0-0.2); BASOPHILS PERCENT AUTO 0.6 % (0.0-1.0); EOSINOPHILS ABSOLUTE AUTO 0.1 K/mm3 (0.0-0.4); EOSINOPHILS PERCENT AUTO 0.9 % (0.0-6.0); HEMATOCRIT 42.6 % (37.0-47.0); HEMOGLOBIN 13.9 gm/dl (12.0-16.0); IMMATURE GRAN ABSOLUTE AUTO 0.03 K/mm3 (0.00-0.05); IMMATURE GRAN PERCENT AUTO 0.3 % (0.0-0.4); LYMPHOCYTES PERCENT AUTO 16.7 % (24.0-44.0); MEAN CORPUSCULAR HEMOGLOBIN 29.5 pg (28.0-32.0); MEAN CORPUSCULAR HGB CONC 32.6 g/dl (32.0-36.0); MEAN CORPUSCULAR VOLUME 90.4 fl (83.0-99.0); MEAN PLATELET VOLUME 10.8 fl (9.4-12.3); MONOCYTES ABSOLUTE AUTO 0.6 K/mm3 (0.0-0.8); MONOCYTES PERCENT AUTO 4.7 % (0.0-8.0); NEUTROPHILS ABSOLUTE AUTO 9.1 K/mm3 (1.8-7.7); NEUTROPHILS PERCENT AUTO 76.8 % (41.0-71.0); PLATELET COUNT,PLT 286 K/mm3 (150-400); RED BLOOD CELL COUNT 4.71 M/mm3 (4.10-5.30); WHITE BLOOD CELL COUNT,WBC 11.78 K/mm3 (3.9-11.3)
[2024-07-22] MEDS: Sodium Chloride 0.9% 1,000 ML IV ONE (01:19)
[2024-07-22 01:41] LABS: A/G RATIO 1.1 (1-2); ALBUMIN 3.5 g/dl (3.4-5.0); ANION GAP 13.8 (5-15); BILIRUBIN TOTAL 0.3 mg/dL (0.2-1.0); CALCIUM 8.6 mg/dL (8.5-10.1); EST CRCL DRUG DOSING (CG) 67.25 mL/min; POTASSIUM,K 3.8 mEq/L (3.5-5.1); PROTEIN TOTAL,TP 6.8 g/dl (6.4-8.2)
[2024-07-22 03:05] VITALS: BP 100/73; PULSE 61
== END 2024-07-22 03:04 | disposition home or self-care (01) ==
LOC: JD.ED 23:46
DX: R10.10 Upper abdominal pain, unspecified (principal); Z88.8 Allergy status to other drugs, medicaments and biological substances; Z79.899 Other long term (current) drug therapy; Z86.16 Personal history of COVID-19
CPT/HCPCS: 36415; 80053; 81003; 83690; 84703; 85025; 96360; 99284; A9270; J7030